=== PATIENT | male | born 1975 | race Caucasian/White ===

== ENCOUNTER 2021-09-25 10:11 | Outpatient (CLI) | payer OTHER, SELFPAY ==
[2021-09-25 15:36] LABS: Chloride* 97 mmol/L (96-114); Potassium* 4.4 mmol/L (3.6-5.1); Sodium* 136 mmol/L (135-149)
[2021-09-25 15:38] LABS: Cholesterol* 222 mg/dL (90-199); Creatinine* 0.6 mg/dL (0.5-1.5); Estimated Glomerular Filt Rate 122 ml/min
[2021-09-25 15:39] LABS: Alanine Aminotransferase* 73 U/L (4-50); Blood Urea Nitrogen* 17 mg/dL (5-24); Calcium* 10.3 mg/dL (8.4-10.6); Carbon Dioxide* 27 mmol/L (20-32); Glucose* 303 mg/dL (60-115); HDL Cholesterol* 39 mg/dL (>=40)
[2021-09-25 16:04] LABS: LDL Cholesterol Calculated 26 mg/dL (<100); Triglycerides* 787 mg/dL (40-149)
== END 2021-09-25 10:12 | disposition home or self-care (01) ==
PROVIDERS: PCP Family Medicine; Visit Provider Family Medicine
DX: Z00.00 Encounter for general adult medical examination without abnormal findings (principal); I10 Essential (primary) hypertension; E78.5 Hyperlipidemia, unspecified; E11.9 Type 2 diabetes mellitus without complications
CPT/HCPCS: 80048; 80061; 84460

== ENCOUNTER 2022-04-18 07:46 | Outpatient (CLI) | payer OTHER, SELFPAY ==
[2022-04-18 15:14] LABS: Alanine Aminotransferase* 55 U/L (4-50); Cholesterol* 170 mg/dL (90-199)
[2022-04-18 15:15] LABS: HDL Cholesterol* 38 mg/dL (>=40)
[2022-04-18 15:28] LABS: LDL Cholesterol Calculated 11 mg/dL (<100); Triglycerides* 606 mg/dL (40-149)
[2022-04-18 15:42] LABS: Creatinine Urine 91.6 mg/dL
[2022-04-18 15:49] LABS: Microalbumin Creatinine Ratio 10 mg/g (0-30); Microalbumin Urine 1 mg/dL
== END 2022-04-18 07:47 | disposition home or self-care (01) ==
PROVIDERS: PCP Family Medicine; Referring Provider Family Medicine; Visit Provider Family Medicine
DX: E11.9 Type 2 diabetes mellitus without complications (principal); E78.5 Hyperlipidemia, unspecified; I10 Essential (primary) hypertension; I51.7 Cardiomegaly; K21.9 Gastro-esophageal reflux disease without esophagitis
CPT/HCPCS: 80061; 82043; 82570; 84460

== ENCOUNTER 2022-11-06 08:26 | Outpatient (CLI) | payer OTHER, SELFPAY ==
[2022-11-06 14:03] LABS: Cholesterol* 170 mg/dL (90-199)
[2022-11-06 14:04] LABS: HDL Cholesterol* 38 mg/dL (>=40); LDL Cholesterol Calculated 44 mg/dL (<100)
[2022-11-06 14:11] LABS: Triglycerides* 442 mg/dL (40-149)
== END 2022-11-06 08:27 | disposition home or self-care (01) ==
LOC: FBOREF 08:27
PROVIDERS: PCP Family Medicine; Visit Provider Family Medicine
DX: E78.5 Hyperlipidemia, unspecified (principal)
CPT/HCPCS: 80061

== ENCOUNTER 2023-05-08 08:35 | Outpatient (CLI) | payer OTHER, SELFPAY | END 2023-05-08 08:36 | disposition home or self-care (01) | PROVIDERS: PCP Family Medicine; Visit Provider Family Medicine | DX: E11.9 Type 2 diabetes mellitus without complications (principal); I10 Essential (primary) hypertension; E78.2 Mixed hyperlipidemia | CPT/HCPCS: 80061; 80076 ==

== ENCOUNTER 2023-08-12 10:55 | Outpatient (CLI) | payer OTHER, SELFPAY ==
--- OUTSIDE RECORDS SUMMARY | 2023-08-12 10:58 | XMS_ITS | Clinical Summary ---
Author Organization [employer] [facility] Address [place], [place] [address] Care Team Providers Care [employer] Credit Card Collection Clerk Name Role Phone Get Vivas MD Primary Care Provider + Allergies Active Allergy Reactions Criticality Noted Date Comments Hydrocodone-Acetaminophen Nausea Only 1 Medications Medication Sig Dispensed Refills Start Date End Date Status MULTIVITAMIN ORAL QD 0 Active aspirin chewable 81 mg chewable tablet Take 1 tablet by mouth once daily with a meal. 0 03/13/2010 Active omega-3 fatty acids-vitamin E (FISH OIL) 1,000 mg Cap Take 1 capsule by mouth once daily. 0 07/09/2011 Active fluticasone (50 mcg per actuation) nasal solution (FLONASE)Indications: Eustachian tube dysfunction, bilateral INHALE TWO SPRAYS INTO BOTH NOSTRILS ONCE DAILY. 48 mL 2 09/09/2016 Active atorvastatin (LIPITOR) 20 mg tabletIndications:Oth er hyperlipidemia Take 1 tablet by mouth once daily. 90 tablet 3 09/02/2017 Active lisinopril (PRINIVIL; ZESTRIL) 40 mg tabletIndications:Hyp ertension Take 1 tablet by mouth once daily. 90 tablet 3 09/02/2017 Active amLODIPine (NORVASC) 10 mg tabletIndications:Hyp ertension Take 1 tablet by mouth once daily. 90 tablet 3 09/02/2017 Active atovaquone-proguanil, 250-100 mg, (Malarone) 250-100 mg tabletIndications:Tra surinder advice encounter Start taking one pill every day, start 2 days prior to travel, continue during the travel and 7 days after completing the travel 25 Tablet 12/14/2020 Active azithromycin (Zithromax Z-Brian) 250 mg tabletIndications:Tra surinder advice encounter Take Zithromax 250 mg twice a day for 3 days for traveler's diarrhea 6 tablet. 12/14/2020 Active Active Problems Problem Noted Date Diagnosed Date Hyperlipidemia 03/08/2015 Hypertension 05/10/2012 Immunizations Name Administration Dates Next Due AMB INFLUENZA, IIV4 (AGE=>6M OS) MDV (Flu Clinic Only) 11/14/2016 COVID-19 vaccine (AirInSpace 30mcg/0.3mL) PF, MDV 06/10/2020,05/19/2020 Hepatitis A (Adult) 09/02/2017,11/16/2016 Hepatitis B (Adult) 09/27/2020 Influenza, IIV4 11/09/2020, 0,11/27/2018, 014 Influenza,CCIIV4 PRESERV FREE 11/14/2017 Tdap 2019,12/02/2008 Typhoid (injectable) 12/14/2020,11/16/2016 Family History Medical History Relation Name Comments Heart Disease Father CAD, arrthymia Hypertension Father Arthritis Mother Heart Disease Mother CAD Hypertension Mother Heart attack Sister Relation Name Status Comments Brother Alive x1 Father Alive Maternal Grandfather Maternal Grandmother Mother Alive Paternal Grandfather Alive Paternal Grandmother Sister Alive x2 Son Alive P[employer]ORN 200 5 Social History Tobacco Use Types Packs/Day Years Used Date Smoking Tobacco: Never Smokeless Tobacco: Never Alcohol Use Standard Drinks/Week Comments Yes 0 (1 standard drink = 0.6 oz pur e alcohol) PHQ-2 Answer Date Recorded PHQ-2 TOTAL SCORE 0 12/14/2020 Social Connections Answer Date Recorded Frequency of Communication with Friends and Fami ly Not on file 02/18/2021 Financial Resource Strain Answer Date R ecorded Difficulty of Paying Living Expenses Not on file 02/18/2021 Difficulty of Paying Living Expenses Not on file 02/18/2021 Sex and Gender Information Value Date Recorded Sex Assigned at Not on file Gender Identity Not on file Sexual Orientation Not on file Obstetrics History Last Filed Vital Signs Vital Sign Reading Time Taken Comments Blood Pressure 120/80 12/14/2020 2:37 PM CDT Pulse 90 12/14/2020 2:37 PM CDT Temperature 36.6 ??C (97.8 ??F) 12/12/2012 9:29 AM CD T Respiratory Rate 20 09/02/2017 11:4 0 AM CDT Oxygen Saturation 98% 12/14/2020 2:37 PM CDT Inhaled Oxygen Concentration - - Weight 143.7 kg (316 lb 12.8 oz) 12/14/2020 2:37 PM CDT Height 182.9 cm (6') 09/02/2017 11:40 AM CDT Body Mass Index 42.97 09/02/2017 11:40 AM CDT Plan of Treatment Health Maintenance Due Date Last Done Comments HIV for age 15-65 1992 Hepatitis C screening for age 18-79 09/24/1995 BMI (ht and wt on same day) for age 18+ 09/02/2018 09/02/2017, 11/16/2016, 06/22/2016, Additional history exists Depression screening for age 12+ 12/14/2021 12/14/2020, 09/02/2017, 11/16/2016, Additional history exists Colonoscopy through age 75 2022 Lipids for age 45-75 2022 08/30/2017, 02/20/2016, 06/28/2015, Additional history exists COVID-19 vaccine series (2022- season) 2022 06/10/2020, 05/19/2020 Influenza for age 9-49 10/20/2023 , 12/07/2019, 11/27/2018, Additional history exists Tetanus booster 09/22/2029 2019, 11/18, 05/31/2008 (Completed outside of [facility]) Tdap Completed 2019, 12/02/2008 Pneumococcal series for age 6-64 Aged Out No longer eligible based on patient's age to complete this topic Procedures Procedure Name Priority Date/Time Associated Diagnosis Comments LIPID PANEL W REFLEX MEASURED LDL Routine 08/30/2017 9:42 AM CDT Other hyperlipidemia from Last 3 Months or Most Recently Relevant to Health Maintenance Results * (ABNORMAL) LIPID PANEL W REFLEX MEASURED LDL (08/30/2017 9:42 AM CDT) CHOLESTEROL,TOTAL 172 100 - 199 mg/dL 08/30/2017 10:34 AM CDT [facility] TRIGLYCERIDES 330(H) <150 mg/dL 08/30/2017 10:34 AM CDT [facility] HDL CHOLESTEROL 42 >40 mg/dL 8 10:34 AM CDT [facility] NON-HDL CHOLESTEROL 130 <145 mg/dl 08/30/2017 10:34 AM CDT [facility] CHOL/HDL RATIO 4.10 <4.50 08/30/2017 10:34 AM CDT [facility] LDL CHOLESTEROL 64 <=130 mg/dL 08/30/2017 10:34 AM CDT [facility] PROVIDER ORDERED STATUS RANDOM 08/30/2017 10:34 AM CDT [facility] Blood BLOOD SPECIMEN / Unknown Venipuncture / Unknown 08/30/2017 9:42 AM CDT 08/30/2017 9:42 AM CDT Get Vivas MD CHEMISTRY [address] [place] [address] from Last 3 Months or Most Recently Relevant to Health Maintenance Care Teams Bank Credit Card Collection Clerk Relationship Specialty Start Date End Date Get Vivas MD PCP - General Family Practice 07/27/12
== END 2023-08-12 10:56 | disposition home or self-care (01) ==
LOC: FBOREF 10:55
PROVIDERS: PCP Family Medicine; Visit Provider Family Medicine
DX: I10 Essential (primary) hypertension (principal); E11.9 Type 2 diabetes mellitus without complications
CPT/HCPCS: 80048

== ENCOUNTER 2024-03-10 08:32 | Outpatient (CLI) | payer OTHER, SELFPAY | END 2024-03-10 08:33 | disposition home or self-care (01) | PROVIDERS: PCP Family Medicine; Visit Provider Family Medicine | DX: E78.2 Mixed hyperlipidemia (principal); I10 Essential (primary) hypertension; E11.65 Type 2 diabetes mellitus with hyperglycemia; Z79.84 Long term (current) use of oral hypoglycemic drugs; Z79.85 Long-term (current) use of injectable non-insulin antidiabetic drugs | CPT/HCPCS: 80048; 80061; 84460 ==

== ENCOUNTER 2025-02-04 07:39 | Outpatient (CLI) | payer OTHER, SELFPAY | END 2025-02-04 07:40 | disposition home or self-care (01) | PROVIDERS: PCP Family Medicine; Visit Provider Family Medicine | DX: I10 Essential (primary) hypertension (principal); E11.9 Type 2 diabetes mellitus without complications; E78.2 Mixed hyperlipidemia | CPT/HCPCS: 80048; 80061; 82043; 82570; 84460 ==